=== PATIENT | female | born 2005 | race Caucasian/White ===

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

== ENCOUNTER 2023-02-05 05:56 | Emergency (ER) | payer MEDICAID ==
[~2023-02-05] VITALS: Ht 160 cm; Wt 52.5 kg
[~2023-02-05 05:56] MED LIST: DOXY100C5 MT; METR-167 MT
[2023-02-05 06:12] VITALS: BP 125/90
[2023-02-05] MEDS ORDERED: TETANUS, DIPHTHERIA, PERTUSSIS VAC/PF 0.5ML (>10YR OLD) IM ONE (07:45)
[2023-02-05] MEDS ORDERED: BACITRACIN ZINC OINT UDPKT TOP ONE (07:45)
[2023-02-05] MEDS ORDERED: DOXYCYCLINE HYCLATE 100MG CAPSULE PO ONE (09:00)
[2023-02-05] MEDS ORDERED: CEFTRIAXONE SODIUM 500 MG/VIAL IM ONE (09:00)
[2023-02-05] MEDS ORDERED: METR-167 MT (09:04)
[2023-02-05] MEDS ORDERED: EMTR1TAB11 MT (09:04)
[2023-02-05] MEDS ORDERED: RALT400T MT (09:04)
[2023-02-05] MEDS ORDERED: DOXY100C5 MT (09:04)
[2023-02-05 09:24] LABS: HCG SCREEN NEGATIVE
[2023-02-05 10:45] LABS: HEPATITIS B SURFACE AB 3.6 mIU/mL
== END 2023-02-05 10:48 | disposition home or self-care (01) ==
LOC: ER 05:56
DX: S52.501A Unspecified fracture of the lower end of right radius, initial encounter for closed fracture (principal); S62.631A Displaced fracture of distal phalanx of left index finger, initial encounter for closed fracture; Y93.89 Activity, other specified; Y92.89 Other specified places as the place of occurrence of the external cause; Y99.8 Other external cause status
CPT/HCPCS: 29125; 36415; 73080; 73130; 84703; 86592; 86703; 86705; 86706; 86803; 90471; 90715; 96372; 99284; J0696; Z7610; A4565

== ENCOUNTER 2023-07-11 03:01 | Emergency (ER) | payer MEDICAID ==
[~2023-07-11] VITALS: Ht 160 cm; Wt 57.0 kg
[~2023-07-11 03:01] MED LIST changes: +EMTR1TAB11 MT; +RALT400T MT
[2023-07-11 03:15] VITALS: BP 109/65; PULSE 99; RESP 17; TEMP 97.9; O2SAT 99
[2023-07-11] MEDS ORDERED: BACITRACIN ZINC OINT UDPKT TOP ONE (06:00)
[2023-07-11] MEDS ORDERED: BO1 TP (06:46)
[2023-07-11] MEDS ORDERED: TOPUD PO (06:46)
== END 2023-07-11 07:16 | disposition home or self-care (01) ==
LOC: ER 03:01
DX: S80.212A Abrasion, left knee, initial encounter (principal); S80.211A Abrasion, right knee, initial encounter; W18.39XA Other fall on same level, initial encounter; Y93.89 Activity, other specified; Y92.89 Other specified places as the place of occurrence of the external cause; Y99.8 Other external cause status
CPT/HCPCS: 73562; 99283